=== PATIENT | male | born 1945 | race Caucasian/White ===

== ENCOUNTER 2024-04-27 05:58 | Outpatient (REF) | payer MEDICARE, SELFPAY ==
[2024-04-27 06:21] LABS: MANUAL DIFF FLAG NO
[2024-04-27 06:58] LABS: Basophils Absolute Auto 0.1 X10*3/uL (0.0-0.2); Eosinophils Absolute Auto 0.3 X10*3/uL (0.0-0.4); Eosinophils Percent Auto 4.1 % (0-4); Hematocrit 36.4 % (42.0-52.0); Hemoglobin 12.4 g/dl (14.0-18.0); Imm Gran Abs Auto 0.02 X10*3/uL (0.00-0.03); Imm Gran Pct Auto 0.2 % (0.0-0.4); Lymphocytes Absolute Auto 2.2 X10*3/uL (1.2-4.9); Lymphocytes Percent Auto 27.9 % (20-40); Mean Corpuscular HGB Conc 34.1 g/dl (31.0-36.0); Mean Corpuscular Hemoglobin 30.8 pg (27.0-33.0); Mean Corpuscular Volume 90.5 fL (80.0-98.0); Mean Platelet Volume 10.3 fL (9.4-12.4); Monocytes Absolute Auto 0.8 X10*3/uL (0.1-1.2); Monocytes Percent Auto 9.5 % (2-11); Neutrophils Absolute Auto 4.6 x10*3/uL (2.0-8.3); Neutrophils Percent Auto 57.3 % (45-73); Platelet Count 300 X10*3/uL (160-400); Red Blood Count 4.02 X10*6/uL (4.60-5.80); Red Cell Distribution Width 15.8 % (11.0-16.0)
[2024-04-27 07:05] LABS: Anion Gap 12 (12-20); Blood Urea Nitrogen 11 mg/dL (9-16); Calcium 8.8 mg/dL (8.4-10.2); Carbon Dioxide 22 mmol/L (22-29); Chloride 105 mmol/L (96-108); Estimated Glomerular Filt Rate > 60; Glucose Random 85 mg/dL (60-115); Sodium 135 mmol/L (135-145)
== END 2024-04-27 05:59 | disposition home or self-care (01) ==
LOC: HO.MMNH1L 05:58
PROVIDERS: Visit Provider Student in an Organized Health Care Education/Training Program
DX: I10 Essential (primary) hypertension (principal)
CPT/HCPCS: 36415; 80048; 85025

== ENCOUNTER 2024-05-04 06:19 | Outpatient (REF) | payer MEDICARE, SELFPAY ==
[2024-05-04 06:04] LABS: MANUAL DIFF FLAG NO
[2024-05-04 07:06] LABS: Basophils Absolute Auto 0.1 X10*3/uL (0.0-0.2); Basophils Percent Auto 0.9 % (0-2); Eosinophils Absolute Auto 0.4 X10*3/uL (0.0-0.4); Eosinophils Percent Auto 5.5 % (0-4); Hematocrit 35.3 % (42.0-52.0); Hemoglobin 11.8 g/dl (14.0-18.0); Imm Gran Abs Auto 0.04 X10*3/uL (0.00-0.03); Imm Gran Pct Auto 0.5 % (0.0-0.4); Lymphocytes Absolute Auto 2.1 X10*3/uL (1.2-4.9); Lymphocytes Percent Auto 27.1 % (20-40); Mean Corpuscular HGB Conc 33.4 g/dl (31.0-36.0); Mean Corpuscular Hemoglobin 30.4 pg (27.0-33.0); Mean Platelet Volume 10.6 fL (9.4-12.4); Monocytes Absolute Auto 0.7 X10*3/uL (0.1-1.2); Monocytes Percent Auto 9.5 % (2-11); Neutrophils Absolute Auto 4.3 x10*3/uL (2.0-8.3); Neutrophils Percent Auto 56.5 % (45-73); Platelet Count 250 X10*3/uL (160-400); Red Blood Count 3.88 X10*6/uL (4.60-5.80); Red Cell Distribution Width 15.8 % (11.0-16.0); White Blood Count 7.7 X10*3/uL (4.8-10.8)
[2024-05-04 07:28] LABS: Anion Gap 11 (12-20); Blood Urea Nitrogen 12 mg/dL (9-16); Calcium 8.4 mg/dL (8.4-10.2); Carbon Dioxide 23 mmol/L (22-29); Chloride 107 mmol/L (96-108); Estimated Glomerular Filt Rate > 60; Glucose Random 74 mg/dL (60-115); Potassium 3.8 mmol/L (3.3-5.1); Sodium 137 mmol/L (135-145)
== END 2024-05-04 06:20 | disposition home or self-care (01) ==
LOC: HO.MMNH1L 06:19
PROVIDERS: Visit Provider Student in an Organized Health Care Education/Training Program
DX: I10 Essential (primary) hypertension (principal)
CPT/HCPCS: 36415; 80048; 85025

== ENCOUNTER 2024-05-11 06:17 | Outpatient (REF) | payer MEDICARE, SELFPAY ==
[2024-05-11 06:04] LABS: MANUAL DIFF FLAG NO
[2024-05-11 06:41] LABS: Basophils Absolute Auto 0.1 X10*3/uL (0.0-0.2); Eosinophils Absolute Auto 0.4 X10*3/uL (0.0-0.4); Eosinophils Percent Auto 5.4 % (0-4); Hematocrit 34.9 % (42.0-52.0); Hemoglobin 11.9 g/dl (14.0-18.0); Imm Gran Abs Auto 0.02 X10*3/uL (0.00-0.03); Imm Gran Pct Auto 0.3 % (0.0-0.4); Lymphocytes Absolute Auto 2.3 X10*3/uL (1.2-4.9); Lymphocytes Percent Auto 32.7 % (20-40); Mean Corpuscular HGB Conc 34.1 g/dl (31.0-36.0); Mean Corpuscular Hemoglobin 30.7 pg (27.0-33.0); Mean Corpuscular Volume 89.9 fL (80.0-98.0); Mean Platelet Volume 10.8 fL (9.4-12.4); Monocytes Absolute Auto 0.7 X10*3/uL (0.1-1.2); Monocytes Percent Auto 9.2 % (2-11); Neutrophils Absolute Auto 3.7 x10*3/uL (2.0-8.3); Neutrophils Percent Auto 51.4 % (45-73); Platelet Count 243 X10*3/uL (160-400); Red Blood Count 3.88 X10*6/uL (4.60-5.80); Red Cell Distribution Width 15.7 % (11.0-16.0); White Blood Count 7.1 X10*3/uL (4.8-10.8)
[2024-05-11 06:49] LABS: Anion Gap 11 (12-20); Blood Urea Nitrogen 13 mg/dL (9-16); Calcium 8.7 mg/dL (8.4-10.2); Carbon Dioxide 23 mmol/L (22-29); Chloride 105 mmol/L (96-108); Estimated Glomerular Filt Rate > 60; Glucose Random 79 mg/dL (60-115); Potassium 3.8 mmol/L (3.3-5.1); Sodium 135 mmol/L (135-145)
== END 2024-05-11 06:18 | disposition home or self-care (01) ==
LOC: HO.MMNH1L 06:17
PROVIDERS: Visit Provider Student in an Organized Health Care Education/Training Program
DX: I10 Essential (primary) hypertension (principal)
CPT/HCPCS: 36415; 80048; 85025

== ENCOUNTER 2024-06-20 16:42 | Emergency (ER) | payer MEDICARE, SELFPAY ==
[2024-06-20] VITALS (23 sets, daily range): BP systolic 82–165; BP diastolic 42–81; PULSE 81–165; RESP 15–41; TEMP 32–38.2; O2SAT 86–98; BMI 24.5
--- NOTE | ~2024-06-20 | XR_ITS ---
CLINICAL HISTORY: tube placement. Single view of the chest. COMPARISON: XR chest dated 06/20/24 at 17:10 EDT FINDINGS: Interval intubation with endotracheal tube terminates 3.6 cm above the hansa. Normal heart size. Multifocal airspace opacities, [id number], similar to prior imaging. No definite pleural effusion. No pneumothorax. No fracture identified. IMPRESSION: 1. Endotracheal tube terminates 3.6 cm above the hansa. This document has been electronically signed by: Wagner Edouard MD on 06/20/2024 20:57:58
--- NOTE | ~2024-06-20 | XR_ITS ---
CLINICAL HISTORY: dyspnea Single view of the chest. COMPARISON: None FINDINGS: Normal heart and mediastinal contours. Multifocal patchy airspace opacities, [id number]. No pleural effusion or pneumothorax. No fracture identified. IMPRESSION: 1. Multifocal pulmonary opacities consistent with multifocal pneumonia and/or pulmonary edema. This document has been electronically signed by: Wagner Edouard MD on 06/20/2024 17:43:52
--- NOTE | 2024-06-20 16:43 | ECG_ITS ---
Test Reason : sob Blood Pressure : */* mmHG Vent. Rate : 148 BPM Atrial Rate : 163 BPM P-R Int : * ms QRS Dur : 86 ms QT Int : 296 ms P-R-T Axes : * -61 100 degrees QTcB Int : 464 ms Premature ventricular complexes Left anterior fascicular block Nonspecific ST and T wave abnormality Abnormal ECG No previous ECGs available Referred By: Generic ED Physician Electronically Signed By: TRACEY ALVARADO
[2024-06-20 17:09] LABS: Hematocrit 40.5 % (42.0-52.0); Hemoglobin 14.1 g/dl (14.0-18.0); Mean Corpuscular HGB Conc 34.8 g/dl (31.0-36.0); Mean Corpuscular Hemoglobin 30.7 pg (27.0-33.0); Platelet Count 256 X10*3/uL (160-400); White Blood Count 9.5 X10*3/uL (4.8-10.8)
[2024-06-20] MEDS: Acetaminophen 1,000 MG/100 ML PIGGYBACK 400 MG IV (17:15)
[2024-06-20 17:17] LABS: VBG Base Excess -3.7 mmol/L; VBG HCO3 19 mmol/L (22-26); VBG pCO2 28 mmHg; VBG pH 7.43 (7.32-7.43); VBG pO2 52 mmHg
[2024-06-20] MEDS: Piperacillin Sodium/Tazobactam 4.5 GM in 0.9 % Sodium Chloride 100 ML IV (17:18)
--- NOTE | 2024-06-20 17:18 | ED_ITS ---
HPI - SOB/Dyspnea General Chief Complaint: Dyspnea Stated Complaint: lethargic, sob 88% room air , afib Time Seen by Provider: 06/20/24 17:10 History of Present Illness ED Provider: Chuy Ortez MD HPI Narrative: 79-year-old male with nonspecified encephalopathy, AFib on apixaban among other comorbid medical conditions comes from local [facility]. I spoke to the son as the patient is lethargic and acutely ill unable to contribute to history. EMS says that the staff noted he relatively abruptly became short of breath. Related Data Allergies Allergy/AdvReac Type Severity Reaction Status Date / Time No Known Allergies Allergy Verified 06/20/24 17:11 [facility] Social History Social History Unable to assess alcohol history related to: Unable to respond Use of substances other than those prescribed or required for medical reasons: Unable to respond Advance Directives: No Advance Directives Information Provided: Yes Do you have a plan to hurt others: No Plan Physical Exam 2 Vital Signs: Vital Signs: Last Vital Signs Temp 97.9 F 06/20/24 22:11 Pulse 81 06/20/24 22:11 Resp 25 H 06/20/24 22:11 BP 101/61 06/20/24 22:11 Pulse Ox 94 06/20/24 22:11 O2 Del Method Mechanical Ventil ation 06/20/24 22:11 FiO2 60 06/20/24 22:11 Oxygen Flow Rate 15 06/20/24 17:09 BMI result Body Mass Index 24.5 Const: Other: EXAM: arrival: Gen: Minimally responsive, ill-appearing leaning to the right side. Very tachypneic rate about 35-40. Poor dentition mumbles in response. Withdraws to pain Head: Atraumatic Eyes: Anicteric, Normal conjunctiva. ENT: dry oral mucosa poor dentition Neck: Supple. Respiratory: tachypneic. No crackles or wheeze. Decreased air entry at the bases Cardiovascular: rapid, irregular. Warm extremities Abdominal: Soft, no objective distension. No palpable masses or obvious organomegaly. No focal tenderness, no guarding, no rebound tenderness or other peritoneal findings. : No flank tenderness. Neuro: Alert. Gross movement of all extremities intact. Vital signs: See flowsheet Medications Administered Generic Name Dose Route Start Last Admin Trade Name Freq PRN Reason Stop Dose Admin Sodium Chloride 500 mls @ 50 mls/hr 06/20/24 18:15 06/20/24 20:05 Ns IV 06/21/24 04:14 Infused .Q10H LUISANA Infusion Propofol 1,000 mg in 100 mls @ 0 mls/hr 06/20/24 22:15 06/20/24 21:59 Diprivan IVCONT 50 mcg/kg/min .Q0M LUISANA 21.33 mls/hr Titration Protocol Per Protocol Norepinephrine Bitartrate 8 mg in 250 mls @ 0 mls/hr 06/20/24 22:15 06/20/24 22:06 Levophed IVCONT 0.11 mcg/kg/min .Q0M LUISANA 14.66 mls/hr Titration Protocol Per Protocol Discontinued Medications Generic Name Dose Route Start Last Admin Trade Name Freq PRN Reason Stop Dose Admin Etomidate 20 mg 06/20/24 22:09 06/20/24 20:09 Etomidate 20 Mg/10 Ml Vial IVPUSH 06/20/24 22:10 20 mg ONCE ONE Administration Sodium Chloride 1,000 mls @ 999 mls/hr 06/20/24 17:15 06/20/24 17:55 Ns IVCONT 06/20/24 19:15 Infused .Q1H1M LUISANA Infusion Sodium Chloride 500 mls @ 999 mls/hr 06/20/24 17:15 06/20/24 18:05 Ns IV 06/20/24 17:45 Infused .Q31M LUISANA Infusion Piperacillin Sod/Tazobactam 100 mls @ 200 mls/hr 06/20/24 17:10 06/20/24 17:37 Sod 4.5 gm/ Sodium Chloride IV 06/20/24 17:39 Infused ONCE ONE Infusion Acetaminophen 1,000 mg in 100 mls @ 400 mls/hr 06/20/24 17:12 06/20/24 17:37 Ofirmev IV 06/20/24 17:26 Infused ONCE ONE Infusion Vancomycin HCl 1,000 mg/ 535 mls @ 267.5 mls/hr 06/20/24 18:00 06/20/24 20:00 Vancomycin HCl 750 mg/ Sodium IV 06/20/24 19:59 Infused Chloride ONCE ONE Infusion Metoprolol Tartrate 2.5 mg/ 52.5 mls @ 230 mls/hr 06/20/24 18:09 06/20/24 18:37 Sodium Chloride IV 06/20/24 18:23 Not Given ONCE ONE Protocol Sodium Chloride 500 mls @ 500 mls/hr 06/20/24 21:00 06/20/24 20:35 Ns IV 06/20/24 21:59 Infused .Q1H LUISANA Infusion Sodium Chloride 1,000 mls @ 999 mls/hr 06/20/24 22:15 06/20/24 21:35 Ns IV 06/20/24 23:15 Infused .Q1H1M LUISANA Infusion Midazolam HCl 2 mg 06/20/24 22:07 06/20/24 20:11 Midazolam Hcl 2 Mg/2 Ml Vial IVPUSH 06/20/24 22:08 2 mg ONCE ONE Administration Rocuronium Lowman 50 mg 06/20/24 22:08 06/20/24 20:09 Rocuronium Lowman 100 Mg/10 Ml Vial IV 06/20/24 22:09 50 mg ONCE ONE Administration Medical Decision Making Medical Decision Making MDM Narrative: 79-year-old male came in with the EMS reported abrupt onset of difficulty breathing and sniff. He was in AFib RVR put on a non-rebreather was hypoxic to the high 80s low 90s with EMS and altered. Patient contributed minimal to history. I spoke to his son briefly shortly after arrival confirmed that he is full code he has been having some swallowing issues in his been on thickened liquids. He saw him proximally 4 or 5 days ago said he was in normal state of health he is ambulatory conversational and does not have known diagnosed pulmonary issues per the son but he was a longstanding smoker until last March. EMS provided oxygen establish a line no medications were given their rhythm strip shows AFib in the 170s. Patient had fever 100.8 tachycardic normotensive warm to the touch however thick secretions around the mouth looks like he has vomited recently and it was suspected that he had aspiration pneumonia. This was confirmed on x-ray with multifocal pneumonia predominantly on the right side. We trialed the patient on high-flow nasal cannula for several hours he did have some improvement but eventually fatigued and was intubated see procedure note above. Shortly after the intubation the patient was started on propofol fentanyl drip and had a transient hypotension that responded to additional fluid bolus and low-dose norepinephrine. Starting at approximately 20:15 we made multiple calls to local tertiary centers and other hospitals given that we have ICU capacity here at [place]. [facility], [facility], [facility] do not have ICU capacity at this time. Call made at 20:55 to [facility] sepsis: Severe sepsis criteria met initial lactate 5.1 with presumed pulmonary infection repeat comprehensive examination and proximally 20:30 showed patient has improved perfusion though mentation was worse. Additional krunal Lab Data MDM Lab Attestation statement: I reviewed the patient's lab results. 06/20/24 16:57 06/20/24 16:57 Labs: Lab Results 06/20/24 06/20/24 06/20/24 Range/Units 16:57 17:03 17:07 WBC 9.5 (4.8-10.8) X10*3/uL RBC 4.60 (4.60-5.80) X10*6/uL Hgb 14.1 (14.0-18.0) g/dl Hct 40.5 L (42.0-52.0) % MCV 88.0 (80.0-98.0) fL MCH 30.7 (27.0-33.0) pg MCHC 34.8 (31.0-36.0) g/dl RDW 15.0 (11.0-16.0) % Plt Count 256 (160-400) X10*3/uL MPV 10.5 (9.4-12.4) fL Immature Gran % (Auto) Cancelled Neut % (Auto) Cancelled Lymph % (Auto) Cancelled [place] % (Auto) Cancelled Eos % (Auto) Cancelled Baso % (Auto) Cancelled Lymph # (Auto) Cancelled [place] # (Auto) Cancelled Eos # (Auto) Cancelled Baso # (Auto) Cancelled Abs Immat Gran (auto) Cancelled Absolute Neuts (auto) Cancelled Absolute Nucleated RBC 0.000 (0.0-0.012) X10*3/uL Nucleated RBC % (auto) 0.0 (0.0-0.2) /100WBC Neutrophils % (Manual) 85 H (45-73) % Band Neutrophils % 5 (3-5) % Lymphocytes % (Manual) 7 L (20-40) % Monocytes % (Manual) 3 (2-11) % Abs Neuts (Manual) 8.6 H (2.0-8.3) X10*3/uL Lymphocytes # (Manual) 0.7 L (1.2-4.9) X10*3/uL Monocytes # (Manual) 0.3 (0.1-1.2) X10*3/uL Toxic Vacuolation PRESENT Platelet Estimate NORMAL (NORMAL) Plt Morphology Comment NORMAL RBC Morphology NOTED Tear Drop Cells 1+ (0-2) /OIF Eder Cells 1+ (0-2) /OIF Hold Blue Top SEE NOTE O2 Saturation % ABG pH at Pt Temp (7.35-7.45) ABG pCO2 at Pt Temp (32-45) mmHg ABG pO2 at Pt Temp (83-108) mmHg ABG HCO3 (22-26) mmol/L ABG Base Excess (Actual) mmol/L VBG pH 7.43 (7.32-7.43) VBG pCO2 28 mmHg VBG pO2 52 mmHg VBG HCO3 19 L (22-26) mmol/L VBG O2 Saturation 83.0 % VBG Base Excess -3.7 mmol/L Sodium 140 (135-145) mmol/L Potassium 3.6 (3.3-5.1) mmol/L Chloride 108 (96-108) mmol/L Carbon Dioxide 16 L (22-29) mmol/L Anion Gap 20 (12-20) BUN 44 H (9-16) mg/dL Creatinine 1.09 (0.5-1.4) mg/dL Estim Creat Clear Calc 53.0 Estimated GFR > 60 Random Glucose 158 H (60-115) mg/dL Lactic Acid 5.1 H* (0.5-2.0) mmol/L Lactic Acid F/U @ 2Hr (0.5-2.0) mmol/L Calcium 9.1 (8.4-10.2) mg/dL Total Bilirubin 1.0 (0.0-1.0) mg/dL AST 27 (5-37) U/L ALT 16 (0-40) U/L Alkaline Phosphatase 86 (39-117) U/L Troponin I High Sens 26.0 (<3.5-35.0) ng/L B-Natriuretic Peptide 128 H (<100) pg/mL Total Protein 7.7 (6.5-8.0) g/dL Albumin 3.6 (3.5-5.0) g/dL Procalcitonin 7.49 ng/mL Urine Color Urine Appearance Urine pH (5.0-9.0) Ur Specific [place] (1.005-1.025) Urine Protein (Neg-Trace) mg/dL Urine Glucose (UA) (Negative) mg/dL Urine Ketones (Negative) mg/dL Urine Blood (Negative) Urine Nitrite (Negative) Ur Leukocyte Esterase (Negative) Urine RBC (0-2) /HPF Urine WBC (0-5) /HPF Ur Squamous Epith Cells (0-2) /HPF Urine Bacteria (None Seen) Hyaline Casts (0-2) /LPF Influenza Type A (PCR) NEGATIVE (Negative) Influenza Type B (PCR) NEGATIVE (Negative) RSV RNA Qual (PCR) NEGATIVE (Negative) SARS-CoV-2 RNA (RT-PCR) NEGATIVE (Negative) 06/20/24 06/20/24 06/20/24 Range/Units 18:00 20:57 21:12 WBC (4.8-10.8) X10*3/uL RBC (4.60-5.80) X10*6/uL Hgb (14.0-18.0) g/dl Hct (42.0-52.0) % MCV (80.0-98.0) fL MCH (27.0-33.0) pg MCHC (31.0-36.0) g/dl RDW (11.0-16.0) % Plt Count (160-400) X10*3/uL MPV (9.4-12.4) fL Immature Gran % (Auto) Neut % (Auto) Lymph % (Auto) [place] % (Auto) Eos % (Auto) Baso % (Auto) Lymph # (Auto) [place] # (Auto) Eos # (Auto) Baso # (Auto) Abs Immat Gran (auto) Absolute Neuts (auto) Absolute Nucleated RBC (0.0-0.012) X10*3/uL Nucleated RBC % (auto) (0.0-0.2) /100WBC Neutrophils % (Manual) (45-73) % Band Neutrophils % (3-5) % Lymphocytes % (Manual) (20-40) % Monocytes % (Manual) (2-11) % Abs Neuts (Manual) (2.0-8.3) X10*3/uL Lymphocytes # (Manual) (1.2-4.9) X10*3/uL Monocytes # (Manual) (0.1-1.2) X10*3/uL Toxic Vacuolation Platelet Estimate (NORMAL) Plt Morphology Comment RBC Morphology Tear Drop Cells /OIF Eder Cells /OIF Hold Blue Top O2 Saturation 98.0 % ABG pH at Pt Temp 7.30 L (7.35-7.45) ABG pCO2 at Pt Temp 36 (32-45) mmHg ABG pO2 at Pt Temp 99 (83-108) mmHg ABG HCO3 18 L (22-26) mmol/L ABG Base Excess (Actual) -7.2 mmol/L VBG pH (7.32-7.43) VBG pCO2 mmHg VBG pO2 mmHg VBG HCO3 (22-26) mmol/L VBG O2 Saturation % VBG Base Excess mmol/L Sodium (135-145) mmol/L Potassium (3.3-5.1) mmol/L Chloride (96-108) mmol/L Carbon Dioxide (22-29) mmol/L Anion Gap (12-20) BUN (9-16) mg/dL Creatinine (0.5-1.4) mg/dL Estim Creat Clear Calc Estimated GFR Random Glucose (60-115) mg/dL Lactic Acid (0.5-2.0) mmol/L Lactic Acid F/U @ 2Hr 2.3 H* (0.5-2.0) mmol/L Calcium (8.4-10.2) mg/dL Total Bilirubin (0.0-1.0) mg/dL AST (5-37) U/L ALT (0-40) U/L Alkaline Phosphatase (39-117) U/L Troponin I High Sens (<3.5-35.0) ng/L B-Natriuretic Peptide (<100) pg/mL Total Protein (6.5-8.0) g/dL Albumin (3.5-5.0) g/dL Procalcitonin ng/mL Urine Color Dark Yellow Urine Appearance Clear Urine pH 5.5 (5.0-9.0) Ur Specific [place] 1.025 (1.005-1.025) Urine Protein 30 (1+) H (Neg-Trace) mg/dL Urine Glucose (UA) Negative (Negative) mg/dL Urine Ketones Negative (Negative) mg/dL Urine Blood Negative (Negative) Urine Nitrite Negative (Negative) Ur Leukocyte Esterase Negative (Negative) Urine RBC 0-2 (0-2) /HPF Urine WBC 0-5 (0-5) /HPF Ur Squamous Epith Cells 0-2 (0-2) /HPF Urine Bacteria None Seen (None Seen) Hyaline Casts 0-2 (0-2) /LPF Influenza Type A (PCR) (Negative) Influenza Type B (PCR) (Negative) RSV RNA Qual (PCR) (Negative) SARS-CoV-2 RNA (RT-PCR) (Negative) Independent Interpretation I performed an independent interpretation of an: EKG ( AFib with RVR frequent polymorphic PVCs. Left axis. No comparison no acute ischemic changes) and Plain X-Ray Interpretation: x-ray 1.: Bilateral pneumonia right greater than left blunted costophrenic margin likely pneumonia probably aspiration X-ray 2: Adequate positioning of the ET tube once again pneumonia seen Independent Historian Clinical information obtained from an independent historian. History obtained from or confirmed by: EMS son healthcare proxy who I spoke to several times to get additional history an update External Record Review External record reviewed: Other ( paperwork provided by longterm facility including medication list) Procedures Intubation Intubation Type:: Endotracheal Tube Insertion Intubation Date:: 06/20/24 Intubation Time:: 20:15 Time out performed: Yes sedative: Etomidate paralytic: Rocuronium Laryngoscope: fiber optic video scope ET Tube Size: 8 ET Tube Uncuffed: Yes Tube Placement Confirmation: visualized tube passing through cords Patient Tolerated Procedure: well Intubation Complications: none Critical Care Time Critical Care Time Critical Care Time: Yes Total Critical Care Time: 95 Attestation: ED Critical Care: Authorized and Performed by: Chuy Ortez MD Total critical care time: Approximately Ninety-five Due to a high probability of clinically significant, life threatening deterioration, the patient required my highest level of preparedness to intervene emergently and I personally spent this critical care time directly and personally managing the patient. This critical care time included obtaining a history; examining the patient; pulse oximetry; ordering and review of studies; arranging urgent treatment with development of a management plan; evaluation of patient's response to treatment; frequent reassessment; and, discussions with other providers. This critical care time was performed to assess and manage the high probability of imminent, life-threatening deterioration that could result in multi-organ failure. It was exclusive of separately billable procedures and treating other patients and teaching time. Discharge Plan Discharge Clinical Impression: Multifocal pneumonia Patient Disposition: [facility] Transfer Details: unfortunately currently no capacity in our ICU the patient required intubation will be transferred out.ACCEPTED BY [facility] Discharge Date/Time: 06/20/24 23:00 Print Language: Filipino
[2024-06-20] MEDS: 0.9 % Sodium Chloride 1,000 ML 999 ML IVCONT ×2 (17:19→17:54)
[2024-06-20] MEDS: 0.9 % Sodium Chloride 500 ML 999 ML IV (17:19)
[2024-06-20 17:26] LABS: B Type Natriuretic Peptide 128 pg/mL (<100)
[2024-06-20 17:27] LABS: Lactic Acid 5.1 mmol/L (0.5-2.0)
[2024-06-20 17:28] LABS: Alanine Aminotransferase 16 U/L (0-40); Albumin Level 3.6 g/dL (3.5-5.0); Alkaline Phosphatase 86 U/L (39-117); Anion Gap 20 (12-20); Aspartate Amino Transferase 27 U/L (5-37); Blood Urea Nitrogen 44 mg/dL (9-16); Calcium 9.1 mg/dL (8.4-10.2); Carbon Dioxide 16 mmol/L (22-29); Chloride 108 mmol/L (96-108); Estimated Glomerular Filt Rate > 60; Glucose Random 158 mg/dL (60-115); Potassium 3.6 mmol/L (3.3-5.1); Sodium 140 mmol/L (135-145); Total Protein 7.7 g/dL (6.5-8.0)
[2024-06-20 17:40] LABS: Venous Blood Gas Refer to POC result
[2024-06-20 17:43] LABS: Mean Platelet Volume 10.5 fL (9.4-12.4)
[2024-06-20 17:55] LABS: Band Neutrophils Percent 5 % (3-5); Lymphocytes Absolute Manual 0.7 X10*3/uL (1.2-4.9); Lymphocytes Percent Manual 7 % (20-40); Monocytes Absolute Manual 0.3 X10*3/uL (0.1-1.2); Monocytes Percent Manual 3 % (2-11); Neutrophils Absolute Manual 8.6 X10*3/uL (2.0-8.3); Neutrophils Percent Manual 85 % (45-73)
[2024-06-20 17:56] LABS: RBC Morphology NOTED
[2024-06-20 17:58] LABS: Burr Cells 1+ (0-2) /OIF; Tear Drop Cells 1+ (0-2) /OIF; Toxic Vacuolation PRESENT
[2024-06-20 17:59] LABS: Platelet Estimate NORMAL (NORMAL); Platelet Morphology Comment NORMAL
[2024-06-20] MEDS: vancomycin HCL 1,000 MG, vancomycin HCL 750 MG in 0.9 % Sodium Chloride 500 ML 267.5 MG IV (17:59)
[2024-06-20 18:04] LABS: Procalcitonin 7.49 ng/mL
[2024-06-20 18:15] LABS: Influenza A PCR NEGATIVE (Negative); Influenza B PCR NEGATIVE (Negative); Resp Syncy Virus RNA Qual PCR NEGATIVE (Negative); SARS COV2 PCR INHOUSE NEGATIVE (Negative)
[2024-06-20] MEDS: 0.9 % Sodium Chloride 500 ML 50 ML IV (18:24)
[2024-06-20 18:25] LABS: Appearance Urine Clear; Color Urine Dark Yellow; Glucose Urine UA Negative (Negative); Leukocyte Esterase Urine Negative (Negative); Nitrite Urine Negative (Negative); PH 5.5 (5.0-9.0); Specific Gravity - Urine 1.025 (1.005-1.025); UMIC TRIGGER UACC YES; Urine Blood Negative (Negative); Urine Ketones Negative (Negative); Urine Protein 30 (1+) mg/dL (Neg-Trace)
[2024-06-20 18:30] LABS: Bacteria Urine None Seen (None Seen); Hyaline Casts Urine 0-2 /LPF (0-2); RBC Urine 0-2 /HPF (0-2); Squamous Epithelial Cell Urine 0-2 /HPF (0-2); WBC Urine 0-5 /HPF (0-5)
[2024-06-20 19:02] LABS: Reflex Lactate? Lactic Acid Added
[2024-06-20] MEDS: 0.9 % Sodium Chloride 500 ML IV (20:05)
[2024-06-20] MEDS: Etomidate 20 MG/10 ML VIAL IVPUSH (20:09)
[2024-06-20] MEDS: Midazolam HCl 2 MG/2 ML VIAL IVPUSH (20:11)
[2024-06-20] MEDS: propofoL 1,000 MG/100 ML VIAL 12.8 MG IVCONT (20:14)
--- NOTE | 2024-06-20 20:15 | PC.NURSE ---
building inspection engineer to room 1 to get primary RN to make her aware of MD's plan for intubation for this patient. Upon RN's arrival to bedside pt was no longer alert, verbal, and although maintaining his O2 and airway with the high flow did appear to be tired and as if he required additional support. Pt was medicated per verbal order with 20mg of Etomidate and 50mg of Rocuronium at 2008. Pt was intubated with a 8cm tube that is noted to be 28 at the lip. Versed 2mg given at 2010 and the propofol drip was initiated at 2013 per protocol at 30mcg/kg/min. The remaining 350ml (approx) of NS was bolused in followed by a 2nd liter of fluids initiated to help support the patient's soft bp of 90s/60. Levophed initiated at 2029 per protocol however medication was titrated back to 0.20mcg per MD verbal order d/t soft BPs of 80s/40s Norepi initiated at 2029 per protocol at the 0.05mcg/kg/min however at 2031 infusion was increased to 0.20mcg/kg/min per verbal order of MD Castañeda. vent settings = ac/vc rate 18, vol 400, 5 peep, 60% FiO2
[2024-06-20] MEDS: Norepinephrine Bitartrate/D5W 8 MG/250 ML PLAST..BAG 6.67 MG IVCONT (20:30)
[2024-06-20] MEDS: 0.9 % Sodium Chloride 1,000 ML 999 ML IV (20:30)
--- NOTE | 2024-06-20 21:05 | PC.NURSE ---
Addendum entered by Amina Alvarado 06/20/24 22:07: Pt's sedation via propofol was increased to 0.50mcg/kg/min at 2158 as the pt was noted to have increased extremity movement and bucking at the vent while staff attempting to drop an OG tube. Pt levophed was INCREASED to 0.11mcg/kg/min at 2205 for a BP of 105/51 and a MAP of 60. Staff attempted to numerous times to drop an OG Tube without success, OG tube insertion deferred at this time as it was a prophylactic intervention EMS present at bedside to prepare for transport. Original Note: Pt's BP was noted to be elevated around 2044 with a BP noted of 148/81 and was initially titrated back to 0.18mcg/kg/min. MD Ch to bedside and at 2047 a verbal order was received to decrease patient's levophed dose to the starting dose of 0.05mcg/kg/min. Pt's BPs have been steadily dropping, Liter of IVF has infused with only the levophed and the propofol infusing at this time. Titration of pt's levophed is as follows: 2105 0.05mcg/kg/min increased to 0.07mcg/kg/minfor a BP of 99/59 2110 0.07mcg/kg/min increased to 0.09mcg/kg/min for a BP of 89/59 2115 pt noted to have a BP of 99/63 with a MAP of 75, dose remains at 0.09mcg/kg/min Titration of propofol is as follows: 2122 pt was noted to be bucking at the vent and moving his extremeties, BPs remain solid at this time and drip INCREASED to 30mcg/kg/min with positive effects noted
[2024-06-20 21:16] LABS: ABG Base Excess -7.2 mmol/L; ABG HCO3 18 mmol/L (22-26); ABG pCO2 36 mmHg (32-45); ABG pO2 99 mmHg (83-108)
[2024-06-20 21:31] LABS: ~Lactic Acid-LAB USE ONLY 2.3 mmol/L (0.5-2.0)
[2024-06-20 23:02] LABS: Reflex Lactate? 2 Y
--- NOTE | 2024-06-20 23:47 | PC.NURSE ---
RN to RN report provided to Jesse from ICU
== END 2024-06-20 23:00 | disposition short-term general hospital (02) ==
PROVIDERS: Emergency Provider Emergency Medicine
DX: J18.8 Other pneumonia, unspecified organism (principal); R09.02 Hypoxemia; R53.83 Other fatigue; R06.00 Dyspnea, unspecified; R06.82 Tachypnea, not elsewhere classified; R50.9 Fever, unspecified; I48.91 Unspecified atrial fibrillation; R06.02 Shortness of breath; I49.3 Ventricular premature depolarization; I44.4 Left anterior fascicular block; Z79.01 Long term (current) use of anticoagulants; Z87.891 Personal history of nicotine dependence; Z03.818 Encounter for observation for suspected exposure to other biological agents ruled out
CPT/HCPCS: 0241U; 31500; 36415; 71045; 80053; 81001; 82803; 83605; 83880; 84145; 84484; 85007; 85027; 87040; 93005; 94002; 96361; 96365; 96366; 96367; 96368; 96375; 99285; 99291; 99292; J0131; J2250; J2543; J2704; J3370

== ENCOUNTER → 2024-06-20 16:43 | Outpatient (BNV) | payer MEDICARE, SELFPAY | PROVIDERS: Emergency Provider Emergency Medicine; Visit Provider Internal Medicine | DX: R06.02 Shortness of breath (principal); R94.31 Abnormal electrocardiogram [ECG] [EKG] | CPT/HCPCS: 93010 ==

== ENCOUNTER → 2024-06-20 17:00 | Outpatient (BNV) | payer MEDICARE, SELFPAY | PROVIDERS: Emergency Provider Emergency Medicine; Visit Provider Radiology Diagnostic Radiology | DX: R06.00 Dyspnea, unspecified (principal); I48.91 Unspecified atrial fibrillation; Z97.8 Presence of other specified devices | CPT/HCPCS: 71045 ==